=== PATIENT | female | born 1955 | race Caucasian/White ===

== ENCOUNTER → 2019-09-02 11:47 | Outpatient (CLI) | payer BC, SELFPAY ==
[2019-09-02 14:54] LABS: Coronavirus 19 IgG Antibody Negative (Negative); Coronavirus 19 IgM Antibody Negative (Negative)
== END ==
PROVIDERS: Visit Provider Internal Medicine Adolescent Medicine
DX: Z03.818 Encounter for observation for suspected exposure to other biological agents ruled out (principal)
CPT/HCPCS: 36415; 86328

== ENCOUNTER → 2019-09-12 11:06 | Outpatient (CLI) | payer BC, SELFPAY ==
--- NOTE | 2019-09-12 11:23 | MR_ITS ---
PROCEDURE: MR HEAD/BRAIN WO CON CLINICAL INDICATION: NEW ONSET HEADACHE Drooping in left eye. X 6 months but has gotten worse. HX breast cancer been in remission x22 years. No prior. COMPARISON: No exams were available for comparison TECHNIQUE: Routine multiplanar multi echo sequences are performed without gadolinium enhancement. FINDINGS: No midline shift, mass effect, intracranial hemorrhage, or hydrocephalus. No acute infarction is evident. There are multiple perivascular dilated spaces. Scattered periventricular and subcortical T2 white matter hyperintensities are present. The cerebellopontine angles, cerebellum, and brainstem are unremarkable. The pituitary, optic chiasm, corpus callosum and craniocervical junction have an unremarkable appearance. Small amount fluid is present in the right mastoid sinus. No paranasal sinus air-fluid level is evident. IMPRESSION: Scattered periventricular and subcortical T2 white matter hyperintensities nonspecific and may be due to ischemic gliotic change from microvascular disease. Differential diagnosis would include demyelinating process and migraine headache. Dictated by: Stepan Ware MD 09/13/2019 13:08 Electronically signed by Stepan Ware MD in [place] 09/13/2019 13:08
== END ==
PROVIDERS: PCP Internal Medicine Adolescent Medicine; Visit Provider Internal Medicine Adolescent Medicine
DX: R51 Headache (principal); H02.402 Unspecified ptosis of left eyelid
CPT/HCPCS: 70551

== ENCOUNTER → 2019-12-18 16:00 | Outpatient (CLI) | payer BC, SELFPAY ==
[2019-12-20 14:19] LABS: Covid-19 Nasal PCR Sendout Lex NOT DETECTED
== END ==
PROVIDERS: PCP Internal Medicine Adolescent Medicine; Visit Provider Internal Medicine Adolescent Medicine
DX: Z03.818 Encounter for observation for suspected exposure to other biological agents ruled out (principal)
CPT/HCPCS: 87581; 87633; 87798; U0004

== ENCOUNTER → 2020-05-11 09:53 | Outpatient (CLI) | payer BC, SELFPAY ==
--- NOTE | 2020-05-11 10:05 | CA_ITS ---
APPROVED REPORT EXAM: Comprehensive 2D, Doppler, and color-flow Echocardiogram Drywall Professional: Precious Ibarra, RCS, RVS Ht: 5 ft 6 in Wt: 129lbs BSA: 1.66 BP: 136/82 mmHg Indications: GALVAN, HTN, Family hx-cad, Hx-breast CA s/p mastectomy with Impants. Echo Enhancing Agent Comments: Technically Limited exam due to extreme petite body habitus and breast implant interference. 2D Dimensions LVOT 1.89 cm (M/F) 1.5-2.5 M-Mode Dimensions RVDd 1.92 cm (0.9-2.6) LA Diam 2.86 cm (1.9-4.0) LVDd 4.76 cm (3.5-5.7) Ao Diam 2.76 cm (2.0-3.7) LVDs 3.06 cm (3.5-5.7) IVSd 0.81 cm (0.6-1.1) PWd 0.76 cm (0.6-1.1) EF (Teich) 63.00% EPSs 1.13 cm FS 34.10% EDV (Teich) 99.30 mL TAPSE 2.01 (<1.7) ESV (Teich) 36.70 mL LV Diastology E Decel Time 207.00 (160-240 msec) E/A Ratio 1.26 MED E' 8.20 (< 7 cm/sec) MED A' 5.20 cm/s E'/MED E' Ratio 8.67 (>14) LAT E' 7.80 (<10 cm/sec) LAT A' 6.00 cm/s E/LAT E' Ratio 9.12 (>14) Aortic Valve LVOT Max 84.00 (70-110 cm/s) LVOT VTI 17.18 cm AoV Peak Eduardo. 111.00 (50-130 cm/s) AO Peak GR. 4.90 mmHg AO Mean GR. 2.80 (<5 mmHg) AO VTI 22.65 (18-25 cm) MARISOL (VTI) 2.13 (2.5-4.5 cm2) Mitral Valve MV E Max Eduardo. 71.00 (40-130 cm/s) MV A Velocity 56.00 (40-130 cm/s) E/A Ratio 1.26 MV Decel. Time 207.00 (160-240 ms) MV PHT 61.00 ms Pulmonary Valve PV Peak Velocity 67.00 (50-150 cm/s) Tricuspid Valve TR P. Velocity 109.00 cm/s RAP Estimate 10.00 mmHg RVSP 14.70 mmHg Left Ventricle Left atrium is normal size, left ventricle is normal size, there is no concentric left ventricular hypertrophy, visually estimated ejection fraction 55% with no regional wall motion abnormality, diastolic parameters are inconclusive. Right Ventricle Right atrium and right ventricle are normal size and contractility. Aortic Valve Aortic valve is minimally thickened and fibrosed, there is no aortic stenosis or aortic insufficiency. Mitral Valve Mitral valve grossly normal, there is trace mitral regurgitation. Tricuspid Valve Tricuspid valve grossly normal, there is trace tricuspid regurgitation. Pulmonic Valve Pulmonic valve is poorly visualized. Great Vessels Aortic root is normal size. Pericardium No significant pericardial effusion noted. Conclusion 1. Normal left ventricular size, preserved left ventricular systolic function, visually estimated ejection fraction 55% with no regional wall motion abnormality, diastolic parameters are inconclusive. 2. Trace mitral and tricuspid regurgitation. 3. No significant pericardial effusion noted. Electronically signed by : Dany Kelly, 05/11/2020 11:08:46
== END ==
PROVIDERS: PCP Internal Medicine Adolescent Medicine; Visit Provider Internal Medicine Adolescent Medicine
DX: R06.09 Other forms of dyspnea (principal)
CPT/HCPCS: 93306

== ENCOUNTER → 2021-01-24 07:24 | Outpatient (CLI) | payer MEDICARE, BC, SELFPAY ==
--- NOTE | 2021-01-24 08:19 | XR_ITS ---
PROCEDURE INFORMATION: Exam: XR Chest Exam date and time: 01/24/2021 8:19 AM Age: 65 years old Clinical indication: Shortness of breath; Additional info: Covid positive patient , SOB TECHNIQUE: Imaging protocol: XR of the chest. Views: 1 view. COMPARISON: No relevant prior studies available. FINDINGS: Tubes, catheters and devices: Surgical clips project over the left chest wall. Lungs: Biapical pleuroparenchymal scarring. Otherwise, no focal airspace disease. Pleural spaces: Unremarkable. No pleural effusion. No pneumothorax. Heart/Mediastinum: Unremarkable. No cardiomegaly. Bones/joints: Unremarkable. IMPRESSION: No acute cardiopulmonary abnormality.
[2021-01-24 08:24] LABS: Adenovirus,PCR Not Detected (NotDetected); Bordetella Pertussis Not Detected (NotDetected); Chlamydophila Pneumoniae, PCR Not Detected (NotDetected); Coronavirus 19, PCR Not Detected (NotDetected); Coronavirus 229E Not Detected (NotDetected); Coronavirus NL63 Not Detected (NotDetected); Coronavirus OC43 Not Detected (NotDetected); Coronovirus HKU1,PCR Not Detected (NotDetected); Human Metapneumovirus Not Detected (NotDetected); Influenza A, PCR Not Detected (NotDetected); Influenza AH1, 2009 Not Detected (NotDetected); Influenza AH1, PCR Not Detected (NotDetected); Influenza AH3,PCR Not Detected (NotDetected); Influenza B, PCR Not Detected (NotDetected); Mycoplasma Pneumoniae, PCR Not Detected (NotDetected); Parainfluenza 1, PCR Not Detected (NotDetected); Parainfluenza 2, PCR Not Detected (NotDetected); Parainfluenza 3, PCR Not Detected (NotDetected); Parainfluenza 4, PCR Not Detected (NotDetected); Respiratory Syncytial Virus Not Detected (NotDetected); Rhinovirus/Enterovirus Not Detected (NotDetected)
[2021-01-24 08:28] LABS: Basophils # 0.1 K/mm3 (0-0.2); Basophils % 0.7 % (0.1-2.0); Eosinophils # 0.1 K/mm3 (0.0-0.4); Eosinophils % 1.2 % (0.1-12.0); Hematocrit 39.9 % (37.0-47.0); Hemoglobin 13.4 g/dL (12.2-16.2); Lymphocytes # 1.3 K/mm3 (0.7-4.5); Lymphocytes % 12.5 % (10-50); Mean Corpuscular HGB Conc 33.5 g/dL (31.8-35.4); Mean Corpuscular Hemoglobin 32.3 pg (27.0-31.2); Mean Corpuscular Volume 96.3 fl (81-99); Mean Platelet Volume 9.3 fl (7.4-10.4); Monocytes # 0.6 K/mm3 (0.1-1.0); Monocytes % 6.1 % (1.7-9.3); Neutrophils % 79.4 % (37.0-80.0); Platelet Count 189 K/mm3 (142-424); Red Blood Count 4.15 M/mm3 (4.20-5.40); Red Cell Distribution Width 13.1 % (11.5-17.5); White Blood Count 10.1 K/mm3 (4.8-10.8)
[2021-01-24 08:36] LABS: Alanine Aminotransferase 27 U/L (12-78); Albumin Level 4.1 g/dl (3.5-5.0); Albumin/Globulin Ratio 1.6 (1.1-1.8); Alkaline Phosphatase 110 U/L (38-126); Anion Gap 9.8 mEq/L (5-15); Aspartate Amino Transferase 37 U/L (14-36); Bilirubin,Total 0.8 mg/dl (0.2-1.3); Blood Urea Nitrogen 13 mg/dl (7-17); Calcium 8.9 mg/dl (8.4-10.2); Carbon Dioxide 27 mmol/L (22.0-30.0); Chloride 102 mmol/L (98-107); Estimated Glomerular Filt Rate 124 ml/min (>60); GFR (African American) 150 ML/MIN (>60); Globulin 2.6 g/dL (1.3-3.2); Glucose 113 mg/dl (74-100); Potassium 3.8 mmoL/L (3.5-5.1); Sodium 135 mmol/L (136-145); Total Protein,Serum 6.7 g/dl (6.3-8.2)
== END ==
PROVIDERS: PCP Internal Medicine Adolescent Medicine; Visit Provider Internal Medicine Adolescent Medicine
DX: Z20.822 Contact with and (suspected) exposure to COVID-19 (principal); R07.89 Other chest pain; R50.9 Fever, unspecified; R06.09 Other forms of dyspnea
CPT/HCPCS: 36415; 71045; 80053; 85025; 87581; 87632; 87798; C9803; U0003; U0005

== ENCOUNTER → 2021-04-19 13:42 | Outpatient (CLI) | payer MEDICARE, BC, SELFPAY | PROVIDERS: PCP Internal Medicine Adolescent Medicine; Visit Provider Internal Medicine Adolescent Medicine | DX: R00.2 Palpitations (principal) | CPT/HCPCS: 93270 ==

== ENCOUNTER → 2021-04-30 13:29 | Outpatient (CLI) | payer MEDICARE, BC, SELFPAY ==
--- NOTE | 2021-04-30 | CA_ITS ---
APPROVED REPORT EXAM: Comprehensive 2D, Doppler, and color-flow Echocardiogram Tetryl Blender Operator: Marium Moss CRT Ht: 5 ft 6 in Wt: 130lbs BSA: 1.67 BP: 110/70 mmHg Indications: Diabetes, Atrial Fibrillation (new onset), Hyperlipidemia, Hypertension/HDD, previous breast CA, bilateral breast implants Echo Enhancing Agent Agent(s) / Amount(s) Used: Agitated Saline 6 cc Comments: B/S APPEARS NEGATIVE. 2D Dimensions LVOT 1.99 cm (M/F) 1.5-2.5 LA Volume 37.40 mL LA Volume Index 22.40 mL/m2 (M/F) 16-34 M-Mode Dimensions RVDd 1.83 cm (0.9-2.6) LA Diam 3.18 cm (1.9-4.0) LVDd 4.92 cm (3.5-5.7) Ao Diam 3.24 cm (2.0-3.7) LVDs 3.15 cm (3.5-5.7) IVSd 0.67 cm (0.6-1.1) PWd 0.65 cm (0.6-1.1) EF (Teich) 65.40% FS 36.00% EDV (Teich) 113.90 mL TAPSE 3.05 (<1.7) ESV (Teich) 39.40 mL LV Diastology E Decel Time 137.00 (160-240 msec) E/A Ratio 0.87 MED E' 5.90 (< 7 cm/sec) MED A' 7.80 cm/s E'/MED E' Ratio 11.24 (>14) LAT E' 8.40 (<10 cm/sec) LAT A' 6.60 cm/s E/LAT E' Ratio 7.89 (>14) Aortic Valve AO Peak GR. 6.30 mmHg Mitral Valve MV A Velocity 76.00 (40-130 cm/s) E/A Ratio 0.87 MV Decel. Time 137.00 (160-240 ms) Pulmonary Valve PV Peak Velocity 109.00 (50-150 cm/s) Tricuspid Valve TR P. Velocity 154.00 cm/s RAP Estimate 10.00 mmHg RVSP 19.50 mmHg Left Ventricle Left atrium is mildly enlarged, left ventricle is normal size, mild concentric left ventricular hypertrophy, visually estimated ejection fraction 55% with no regional wall motion abnormality, diastolic parameters are inconclusive. Right Ventricle Right atrium and right ventricle are normal size and contractility. Atria Intra-atrial septum is intact, agitated saline contrast study did not identify intracardiac shunt. Aortic Valve Aortic valve is minimally thickened and fibrosed, there is no aortic stenosis or aortic insufficiency. Mitral Valve Mitral valve grossly normal, there is trace mitral regurgitation. Tricuspid Valve Tricuspid grossly normal, there is trace tricuspid regurgitation, tricuspid regurgitation jet velocity is inadequate for calculation of the right ventricular systolic pressure. Pulmonic Valve Pulmonic valve is poorly visualized. Great Vessels Aortic root is normal size. Inferior vena cava is poorly visualized. Pericardium No significant pericardial effusion. Conclusion 1. Normal left ventricular size, mild concentric left ventricular hypertrophy, visually estimated ejection fraction 55% with no regional wall motion abnormality, diastolic parameters are inconclusive the study. 2. Trace mitral and tricuspid regurgitation. 3. Agitated saline contrast study fails to identify intracardiac shunt. 4. No significant pericardial effusion. 5. Inferior vena cava is poorly visualized. Electronically signed by : Dany Kelly MD 04/30/2021 15:28:11
== END ==
PROVIDERS: PCP Internal Medicine Adolescent Medicine; Visit Provider Internal Medicine Adolescent Medicine
DX: I48.0 Paroxysmal atrial fibrillation (principal)
CPT/HCPCS: 93306

== ENCOUNTER → 2021-06-02 11:36 | Outpatient (CLI) | payer MEDICARE, BC, SELFPAY ==
[2021-06-02 11:41] LABS: Coronavirus 19, PCR Not Detected (NotDetected); Influenza A, PCR Not Detected (NotDetected); Influenza B, PCR Not Detected (NotDetected)
[2021-06-02 12:26] LABS: Basophils # 0.1 K/mm3 (0-0.2); Basophils % 1.3 % (0.1-2.0); Eosinophils # 0.1 K/mm3 (0.0-0.4); Eosinophils % 1.7 % (0.1-12.0); Hematocrit 44.9 % (37.0-47.0); Hemoglobin 15.1 g/dL (12.2-16.2); Lymphocytes # 1.5 K/mm3 (0.7-4.5); Lymphocytes % 33.1 % (10-50); Mean Corpuscular HGB Conc 33.6 g/dL (31.8-35.4); Mean Corpuscular Hemoglobin 32.6 pg (27.0-31.2); Mean Corpuscular Volume 97.1 fl (81-99); Mean Platelet Volume 9.4 fl (7.4-10.4); Monocytes # 0.4 K/mm3 (0.1-1.0); Monocytes % 7.8 % (1.7-9.3); Neutrophils # 2.6 K/mm3 (1.8-7.8); Platelet Count 201 K/mm3 (142-424); Red Blood Count 4.63 M/mm3 (4.20-5.40); White Blood Count 4.6 K/mm3 (4.8-10.8)
[2021-06-02 13:13] LABS: Anion Gap 11.1 mEq/L (5-15); Blood Urea Nitrogen 21 mg/dl (7-17); Calcium 10.1 mg/dl (8.4-10.2); Carbon Dioxide 29 mmol/L (22.0-30.0); Chloride 101 mmol/L (98-107); Estimated Glomerular Filt Rate 100 ml/min (>60); GFR (African American) 121 ML/MIN (>60); Glucose 95 mg/dl (74-100); Potassium 4.1 mmoL/L (3.5-5.1); Sodium 137 mmol/L (136-145)
== END ==
PROVIDERS: PCP Internal Medicine Adolescent Medicine; Visit Provider Physician Assistant
DX: E78.5 Hyperlipidemia, unspecified (principal); I10 Essential (primary) hypertension; I47.1 Supraventricular tachycardia; I47.2 Ventricular tachycardia; I48.91 Unspecified atrial fibrillation; Z82.49 Family history of ischemic heart disease and other diseases of the circulatory system; Z01.812 Encounter for preprocedural laboratory examination; Z11.52 Encounter for screening for COVID-19
CPT/HCPCS: 36415; 80048; 85025; C9803; U0003; U0005

== ENCOUNTER 2021-06-03 10:30 | Day surgery (SDC) | payer MEDICARE, BC, SELFPAY ==
[2021-06-03] VITALS (13 sets, daily range): BP systolic 133–158; BP diastolic 73–89; PULSE 63–78; RESP 16–19; TEMP 36.5–36.9; O2SAT 95–100; BMI 21.7
--- NOTE | 2021-06-03 07:20 | IR_ITS ---
APPROVED REPORT Patient Location: Outpatient Supervisor Education: MAGGIE Saldivar RT (R) PROCEDURES Left heart catheterization Left ventriculogram Selective coronary angiogram INDICATION Ventricular tachycardia, Atrial fibrillation Informed consent was obtained prior to the procedure. COMPLICATIONS NONE Estimated Blood Loss: LESS THAN 10 ML TECHNIQUE One percent lidocaine used to anesthetize the right anterior aspect of the wrist. The right radial artery was accessed via the Seldinger technique. A 6 Citizen Of [place] sheath was placed in the right radial artery. 2.5 mg of verapamil, 800 mcg of nitroglycerin, 1mg Lidocaine and 5000 U Heparin were given through the arterial sheath. The papa catheter was also used to perform left heart catheterization, left ventriculogram and selective coronary angiogram. At the end of the procedure the sheath was removed good hemostasis was achieved using Traclet band, patient was transferred to the postop holding area in stable condition. ANGIOGRAPHIC RESULTS The left main artery Normal The left anterior descending artery Is a large-caliber vessel which gives rise to a high moderate sized first diagonal artery followed by a concentric 10 to 20% stenosis immediately after the first septal automated equipment engineer technician. This 20% stenosis is then followed by a mild to moderate vascular ectatic area. Distal to this is an additional 40% stenosis. Distal to the second diagonal artery is an additional 40% concentric stenosis The circumflex artery Is a nondominant yet still large caliber vessel with mild 10% luminal irregularities The right coronary artery Is a dominant vessel and has proximal and mid vessel diffuse 10% smooth luminal irregularities The CANTU ventriculogram reveals Normal slightly hyperdynamic at 65 to 70% The left ventricular end-diastolic pressure 15 mmHg IMPRESSION Coronary artery disease as described above accompanied by what appears to be endothelial dysfunction and probable mid vessel vascular ectasia Normal slightly hyperdynamic ventricle consistent with diastolic dysfunction which is also consistent with the highly tortuous vessels Borderline elevated LVEDP PLAN 1. Patient is endothelial dysfunction and I am suspicious an FFR of the LAD would become empirically positive. I am not convinced patient's angiographic stenoses are significant. I would prefer performing an exercise Myoview to determine if the anterior wall has ischemia. Patient's body habitus should allow for highly diagnostic and favorable pictures to adequately assess for anterior ischemia. 2. Recommend aggressive management of hyperlipidemia with a goal LDL less than 55 to be achieved with high intensity statin 3. Aspirin 81 mg daily 4. Continue with anticoagulation for paroxysmal atrial fibrillation and chads vas score of 3 5. Maximize beta-blockers first possibly combined with diltiazem 6. Low-dose nitrates may also benefit endothelial dysfunction 7. If the anterior wall is ischemic on Myoview images I would be inclined to bring patient back to the [facility] and revascularize the LAD possibly with IVUS guidance due to the diffuse nature of the LAD disease Electronically signed by : eLs Nava MD 06/03/2021 12:58:28
== END 2021-06-03 16:16 | disposition home or self-care (01) ==
LOC: CATHLAB 10:31
PROVIDERS: PCP Internal Medicine Adolescent Medicine; Visit Provider Internal Medicine
DX: E78.5 Hyperlipidemia, unspecified (principal); I10 Essential (primary) hypertension; I45.5 Other specified heart block; I47.1 Supraventricular tachycardia; I47.2 Ventricular tachycardia; I48.0 Paroxysmal atrial fibrillation; R94.31 Abnormal electrocardiogram [ECG] [EKG]; Z82.49 Family history of ischemic heart disease and other diseases of the circulatory system; Z79.899 Other long term (current) drug therapy; I25.10 Atherosclerotic heart disease of native coronary artery without angina pectoris; Z79.01 Long term (current) use of anticoagulants
CPT/HCPCS: 93458; 99152; C1725; C1760; C1769; J1644; Q9967

== ENCOUNTER → 2021-06-09 07:15 | Outpatient (CLI) | payer MEDICARE, BC, SELFPAY ==
--- NOTE | 2021-06-09 | CA_ITS ---
APPROVED REPORT Exam: Exercise Treadmill Technologist: Janell Shah Ht: 5 ft 6 in Wt: 135 lbs BSA: 1.69 m2 HR: 49 bpm BP: 134/75 mmHg Indications: CAD Medical History Medications: Aspirin,,,,, Atorvastatin,,,,, Mechelle,,,,, DilTiazem,,,,, Losartan HCTZ,,,,, Ipratropium [place],,,,, Multivitamin,,,,, Potassium,,,,, Stress Test Details Test: Manual Treadmill HR Resting HR: 55 bpm Max Heart Rate (APMHR): 155.420238 bpm Max HR Achieved: 118 bpm Target HR (85% APMHR): 131.467755 bpm % of APMHR: 76.13 Recovery HR: 62 bpm BP Resting BP: 134.0/75.0 mmHg Max BP: 148.0/80.0 mmHg Recovery BP: 137.0/72.0 mmHg ECG Resting ECG: Marked sinus bradycardia, rightward axis Clinical Exercise duration: 10:30 min Highest Stage Achieved: Exercise capacity: 12.8 METs Stress ECG Conclusion Patient exercised 10:30 into stage 4 of Rodo Protocol. Speed was decreased over the final 45 seconds. Test stopped due to shortness of air. Symptoms: No chest pain. Arrhythmias/Ectopy: Rare PAC and PVC. ST-T Changes: 0.5 - [address] depression inferiorly and laterally. Conclusion: Equivocal EKG changes for ischemia, to the heart rate achieved (76% of PM). Myoview images reported separately. Test Summary REST . . . . . . . Sitting REST . . . . . . . Standing REST 04:34 0.0 0.0 55 . 134/ 75 . . Stage 1 01:00 10.0 1.7 71 . . . . Stage 1 02:00 10.0 1.7 76 . . . . Stage 1 03:00 10.0 1.7 78 . 132/ 76 . . Stage 2 01:00 12.0 2.5 82 . . . . Stage 2 02:00 12.0 2.5 80 . . . . Stage 2 03:00 12.0 2.5 86 . 132/ 75 . . Stage 3 01:00 14.0 3.4 93 . . . . Stage 3 02:00 14.0 3.4 97 . . . . Stage 3 . . . . . . . Myoview Injected Stage 3 03:00 14.0 3.4 99 . 140/ 74 . . Stage 4 . . . . . . . Protocol changed to Manual Treadmill Stage 4 01:00 16.0 3.8 118 . . . . Stage 4 01:30 16.0 3.8 113 . . . Stop exercise at 10:30 RECOVERY 01:00 0.0 0.0 91 . . . . RECOVERY 02:00 0.0 0.0 87 . 148/ 80 . . RECOVERY 03:00 0.0 0.0 70 . 148/ 80 . . RECOVERY 04:00 0.0 0.0 71 . 148/ 80 . . RECOVERY 05:00 0.0 0.0 63 . 137/ 72 . . RECOVERY 05:20 0.0 0.0 63 . 137/ 72 . . Electronically signed by : Dany Kelly MD 06/09/2021 20:26:51
--- NOTE | 2021-06-09 07:15 | NM_ITS ---
APPROVED REPORT Exam: Nuclear Stress Test Indication: CAD, HTN, HYPERLIPIDEMIA, FM HX, ABN EKG Patient Location: Outpatient Stress Tech: Janell Shah GA Tech:MAGGIE Turner RT (R)(N)(M) Ht: 5 ft 6 in Wt: 130 lbs Bra Size: 30D HR: 49 bpm BP: 134/75 mmHg BSA: 1.67 m2 BMI: 20.9 History: CAD, HTN, HYPERLIPIDEMIA, FM HX, ABN EKG Procedure: Patient exercised on Rodo protocol 10:30 minutes and sec, resting heart rate 49 bpm, resting blood pressure 134/75 mmHg, with exercise maximum heart rate achived was 118 bpm which is 76 % of the maximum predicted heart rate and blood pressure was 148/80 mmHg. Test was stopped due to FATIGUE. Patient denied any complaint of chest pain. Patient has good exercise capacity, achieved 12.8 METs of workload on treadmill, the blood pressure response to exercise was Adequate. Electrocardiogram Resting electrocardiogram shows sinus rhythm nonspecific ST-T changes, with exercise there is less than 1.[address] segment depression noted from the baseline EKG. The EKG portion of the exercise Myoview is nondiagnostic due to baseline abnormal EKG and patient not achieving the target heart rate. Cardiac Stress and Resting SPECT Images: Cardiac Stress and Resting SPECT images were obtained using technetium 99m Myoview 31.1 mCi stress and 10.43 mCi at rest. Gated SPECT for analysis of segmental wall motion and calculation of the ejection fraction also done. Cardiac stress and resting SPECT images show mild fixed defect in the anterior wall with normal contractility gated SPECT is likely secondary to soft tissue attenuation, no reversible ischemia seen, computer derived ejection fraction is 48% with no regional wall motion abnormality, right ventricle is normal size and contractility. Conclusion: 1. The EKG portion of the exercise Myoview is nondiagnostic, patient has good exercise capacity achieved 12.8 METs of workload on treadmill, the blood pressure response to exercise was adequate, patient denied any complaint of chest pain. 2. No scintigraphic evidence of reversible ischemia seen, computer derived ejection fraction is 48% with no regional wall motion abnormality, right ventricle is normal size and contractility. Electronically signed by : Dany Kelly MD 06/09/2021 20:35:25
== END ==
PROVIDERS: PCP Internal Medicine Adolescent Medicine; Visit Provider Internal Medicine
DX: R94.31 Abnormal electrocardiogram [ECG] [EKG] (principal)
CPT/HCPCS: 78452; 93017; A9502

== ENCOUNTER 2022-01-09 21:09 | Observation (INO) | payer MEDICARE, BC, SELFPAY ==
[2022-01-09 21:12] VITALS: BP 137/85; PULSE 70; RESP 16; TEMP 36.8; O2SAT 97; BMI 21.7
--- NOTE | 2022-01-09 21:14 | XR_ITS ---
PROCEDURE INFORMATION: Exam: XR Chest Exam date and time: 01/09/2022 9:36 PM Age: 66 years old Clinical indication: Shortness of breath; Additional info: SOB TECHNIQUE: Imaging protocol: Radiologic exam of the chest. Views: 1 view. COMPARISON: CR XR CHEST PORTABLE 01/24/2021 8:26 AM FINDINGS: Lungs: Chronic biapical parenchymal scarring. No acute airspace consolidation. Pleural spaces: Chronic biapical pleural scarring. Heart/Mediastinum: Unremarkable. No cardiomegaly. Bones/joints: Unremarkable. IMPRESSION: No acute findings.
--- NOTE | 2022-01-09 21:30 | ECG_ITS ---
APPROVED REPORT Exam: Resting ECG HR:67 bpm ECG Measurements Heart Rate 67 AXES AL 192 P 78 QRSd 96 QRS 94 QT 424 T 89 QTc 439 Conclusion SINUS RHYTHM BORDERLINE RIGHT AXIS DEVIATION [QRS AXIS > 90] BORDERLINE ECG UNCONFIRMED REPORT Electronically signed by : Carmelo Andres MD 01/10/2022 21:40:37
--- NOTE | 2022-01-09 21:45 | PC.NURSE ---
Pt reports to be a L limb alert. [place] band placed on L wrist.
[2022-01-09 22:00] VITALS: BP 121/77; PULSE 63; RESP 16; O2SAT 98
[2022-01-09 22:03] LABS: Basophils # 0.1 K/mm3 (0-0.2); Basophils % 0.9 % (0.1-2.0); Eosinophils # 0.3 K/mm3 (0.0-0.4); Eosinophils % 3.3 % (0.1-12.0); Hematocrit 39.5 % (37.0-47.0); Hemoglobin 12.9 g/dL (12.2-16.2); Lymphocytes # 2.1 K/mm3 (0.7-4.5); Lymphocytes % 27.5 % (10-50); Mean Corpuscular HGB Conc 32.7 g/dL (31.8-35.4); Mean Corpuscular Hemoglobin 32.4 pg (27.0-31.2); Mean Platelet Volume 8.8 fl (7.4-10.4); Monocytes # 0.7 K/mm3 (0.1-1.0); Monocytes % 8.7 % (1.7-9.3); Neutrophils # 4.6 K/mm3 (1.8-7.8); Neutrophils % 59.6 % (37.0-80.0); Platelet Count 197 K/mm3 (142-424); Red Blood Count 3.99 M/mm3 (4.20-5.40); Red Cell Distribution Width 12.9 % (11.5-17.5); White Blood Count 7.7 K/mm3 (4.8-10.8)
[2022-01-09 22:13] LABS: Alanine Aminotransferase 25 U/L (12-78); Albumin Level 4.1 g/dl (3.5-5.0); Albumin/Globulin Ratio 1.7 (1.1-1.8); Alkaline Phosphatase 165 U/L (38-126); Anion Gap 13.7 mEq/L (5-15); Aspartate Amino Transferase 39 U/L (14-36); Bilirubin,Total 0.4 mg/dl (0.2-1.3); Blood Urea Nitrogen 19 mg/dl (7-17); Calcium 8.9 mg/dl (8.4-10.2); Carbon Dioxide 28 mmol/L (22.0-30.0); Chloride 100 mmol/L (98-107); Creatinine Clearance Estimated 53 mL/min (50-200); Estimated Glomerular Filt Rate 123 ml/min (>60); GFR (African American) 149 ML/MIN (>60); Globulin 2.4 g/dL (1.3-3.2); Glucose 157 mg/dl (74-100); Potassium 3.7 mmoL/L (3.5-5.1); Sodium 138 mmol/L (136-145); Total Protein,Serum 6.5 g/dl (6.3-8.2)
--- NOTE | 2022-01-09 22:14 | PC.NURSE ---
Dr. Arango at [facility]
[2022-01-09 22:25] LABS: NT Pro Brain Natriuretic Pep. 566 pg/mL (0-125)
[2022-01-09 22:27] LABS: Troponin I < 0.01 ng/ml (0.00-0.034)
[2022-01-09 22:30] VITALS: BP 128/75; PULSE 64; RESP 17; O2SAT 97
--- NOTE | 2022-01-09 22:32 | CT_ITS ---
PROCEDURE INFORMATION: Exam: CT Head Without Contrast Exam date and time: 01/09/2022 11:37 PM Age: 66 years old Clinical indication: Syncope and collapse TECHNIQUE: Imaging protocol: Computed tomography of the head without contrast. Radiation optimization: All CT scans at this facility use at least one of these dose optimization techniques: automated exposure control; mA and/or kV adjustment per patient size (includes targeted exams where dose is matched to clinical indication); or iterative reconstruction. COMPARISON: MR HEAD/BRAIN WO CON 09/12/2019 11:36 AM FINDINGS: Brain: There is age-appropriate cerebral atrophy. Severe changes of chronic small vessel ischemia within the cerebral white matter regions bilaterally. No acute infarct or hemorrhage. Cerebral ventricles: No ventriculomegaly. Paranasal sinuses: Visualized sinuses are unremarkable. No fluid levels. Mastoid air cells: Visualized mastoid air cells are well aerated. Bones/joints: Unremarkable. No acute fracture. Soft tissues: Unremarkable. IMPRESSION: No acute intracranial abnormality.
[2022-01-09 23:01] VITALS: BP 106/55; PULSE 65; RESP 17; O2SAT 98
[2022-01-09 23:30] VITALS: BP 123/85; PULSE 66; RESP 20; O2SAT 96
--- NOTE | 2022-01-09 23:33 | PC.NURSE ---
Waiting for a return call from cardiac service with [facility]
--- NOTE | 2022-01-09 23:43 | PC.NURSE ---
Dr. [facility] garcia
--- NOTE | 2022-01-09 23:47 | PC.NURSE ---
Pt admitted [facility] to [facility]. Dr. Arango updating pt/family at this time.
--- NOTE | 2022-01-09 23:58 | HMH.EDGENADL ---
Discharge Plan Disposition Patient Disposition: Admitted as Observation Condition: Good Chief Complaint: Syncope Clinical Impressions Clinical Impression: Near syncope Discharge ED Provider: Jesus Arango General Adult HPI General Chief complaint: Syncope Stated complaint: 01/05 Heart Procure Light Headed Time Seen by Provider: 01/09/22 21:14 Mode of Arrival: Wheelchair Source of Information: Patient Limitations: No Limitations Description of Symptoms (Recalled from ER Triage Doc. by RN): Pt c/o pre-syncopal episode while shopping. States she felt like I might pass out so I sat down real quick and it got a little better. Then I was assisted to stand and sit on a bench . Pt's spouce then brought pt to ED. She denies any dizziness or chest pain. She reports she had a watchman device placed on Mon (01/05) and follow-up with PCP ([facility]) on Mon (01/07). Per pt, she reports that Dr Andres wanted her to cut her blood pressure med (Losartan/HCTZ) in half d/t her BP being low. Pt just started back on her blood thinner Xarelto. History of Present Illness HPI narrative: 66yo F presents to the emergency department secondary to near syncope. Reports episode began while she was shopping at [employer]. Went home but family encouraged her to be evaluated urgently. Patient recently underwent watchman procedure on January 05 at [facility]. Saw PCP on Monday and her blood pressure medication reduced secondary to mild low blood pressure. Denies any chest pain, rapid heart rate/slow heart rate/skipping beats. No shortness of breath Related Data Home Medications Medication Instructions Recorded Confirmed aspirin 81 mg tablet,delayed 81 mg PO DAILY 06/02/21 06/14/21 release atorvastatin 40 mg tablet 40 mg PO DAILY 06/02/21 06/14/21 calcium 600 mg-D3 800 unit-mag11 1 tab PO DAILY 06/02/21 06/14/21 50 fi-oixs-odhfng-remberto-s.borat tablet diltiazem HCl 120 mg 120 mg PO DAILY 06/02/21 06/14/21 capsule,extended release 24 hr fexofenadine 180 mg tablet 180 mg PO DAILY 06/02/21 06/14/21 (Mechelle Allergy) ipratropium bromide 21 mcg (0.03 2 spray intranasal ONCE 03/30/22 04/11/22 %) nasal spray losartan 100 0.5 tab PO DAILY 06/02/21 06/14/21 mg-hydrochlorothiazide 25 mg tablet multivitamin 1 tab PO DAILY 06/02/21 06/14/21 potassium chloride 20 mEq 20 meq PO DAILY 06/02/21 06/14/21 tablet,extended release(part/cryst) s-adenosnyl 200 mg-collagen 13.33 1 cap PO DAILY 06/02/21 06/14/21 fd-avjpql-Vtgiwe-turm-pep capsule Previous Rx's Medication Instructions Recorded montelukast 10 mg tablet 10 mg PO DAILY #30 tabs 06/02/21 rivaroxaban 20 mg tablet (Xarelto) 20 mg PO DAILY #30 tabs 06/02/21 metoprolol succinate 25 mg See Rx Instructions .Route 12/02/21 tablet,extended release 24 hr .COMPLEX #90 tabs Allergies Allergy/AdvReac Type Severity Reaction Status Date / Time apixaban [From Eliquis] Allergy rash on Verified 06/14/21 11:01 neck & face rivaroxaban [From Xarelto] Allergy rash to Verified 06/14/21 11:01 face & neck PFSH PFSH Medical History Abnormal electrocardiography Atrial fibrillation Atrial tachycardia Family history of heart disease HLD (hyperlipidemia) HTN (hypertension) V tach Social History Smoking Status: Former smoker alcohol intake: never current occupational status: employed Travel in the last 8 weeks: Inside the [place] household members: spouse housing: house current occupational exposures/hazards: No caffeine: No ROS Obtained: Yes Systems reviewed as appropriate & no additional complaints except as documented 10 point ROS negative except as above Physical Exam General General appearance: alert and in no apparent distress Head Head exam: atraumatic and normocephalic Eye Eye exam: Present normal appearance and PERRL; Absent scleral icterus, conj
[2022-01-10] VITALS (8 sets, daily range): BP systolic 113–125; BP diastolic 65–80; PULSE 56–70; RESP 16–19; TEMP 36.5–36.7; O2SAT 96–99; BMI 22.5; BMI 22.1
[2022-01-10 00:37] LABS: Coronavirus 19, PCR Not Detected (NotDetected); Influenza A, PCR Not Detected (NotDetected); Influenza B, PCR Not Detected (NotDetected)
[2022-01-10 01:11] LABS: Troponin I < 0.01 ng/ml (0.00-0.034)
[2022-01-10 03:47] LABS: Basophils # 0.1 K/mm3 (0-0.2); Eosinophils # 0.2 K/mm3 (0.0-0.4); Eosinophils % 3.4 % (0.1-12.0); Hematocrit 37.6 % (37.0-47.0); Hemoglobin 12.5 g/dL (12.2-16.2); Lymphocytes # 1.7 K/mm3 (0.7-4.5); Lymphocytes % 24.9 % (10-50); Mean Corpuscular HGB Conc 33.2 g/dL (31.8-35.4); Mean Corpuscular Hemoglobin 32.4 pg (27.0-31.2); Mean Corpuscular Volume 97.7 fl (81-99); Mean Platelet Volume 9.7 fl (7.4-10.4); Monocytes # 0.6 K/mm3 (0.1-1.0); Monocytes % 8.8 % (1.7-9.3); Neutrophils # 4.3 K/mm3 (1.8-7.8); Platelet Count 171 K/mm3 (142-424); Red Blood Count 3.85 M/mm3 (4.20-5.40); Red Cell Distribution Width 12.8 % (11.5-17.5); White Blood Count 6.9 K/mm3 (4.8-10.8)
[2022-01-10 03:48] LABS: Chloride 104 mmol/L (98-107); Sodium 138 mmol/L (136-145)
[2022-01-10 03:51] LABS: Blood Urea Nitrogen 16 mg/dl (7-17); Carbon Dioxide 26 mmol/L (22.0-30.0); Creatinine Clearance Estimated 55 mL/min (50-200); Estimated Glomerular Filt Rate 123 ml/min (>60); GFR (African American) 149 ML/MIN (>60); Phosphorous 3.8 mg/dl (2.5-4.5)
[2022-01-10 03:52] LABS: Calcium 8.8 mg/dl (8.4-10.2)
[2022-01-10 04:03] LABS: Glucose 94 mg/dl (74-100); Troponin I < 0.01 ng/ml (0.00-0.034)
--- NOTE | 2022-01-10 05:44 | PC.NURSE ---
NO ACUTE CHANGES SINCE ARRIVING TO THE FLOOR. LUNG SOUNDS ARE CLEAR. HAS RESTED WELL. NO C/O CHEST PAIN, SOB, OR DIZZINESS. REMAINS NSR TO SINUS ARRHYTHMIA ON TELE. VSS. PT HAS EXPRESSED CONCERN ABOUT HER BLOOD PRESSURE AND BLOOD PRESSURE MEDICATION. CONCERNS WERE DISCUSSED WITH PT. PT HAS AMBULATED TO THE BATHROOM WITH STANDBY ASSIST.
--- NOTE | 2022-01-10 07:11 | HMH.PHAINT1 ---
Pharmacy Intervention Comments: MEDICATION RECONCILIATION COMPLETED ON PATIENT USING EXTERNAL FILL HISTORY FROM PHARMACY AND LSIT FROM CARDIOLOGY OFFICE. -RENÉ JAMAD
--- NOTE | 2022-01-10 08:40 | EXP.HPDC ---
General Admission date:: 01/10/22 Discharge date: 01/10/22 *Admission Date: 01/09/22 *Chief complaint: Near syncope *History of present illness: 66-year-old female with recent history of watchman device implantation for paroxysmal atrial fibrillation who has been feeling well since that time but has progressively had lower blood pressures in my office and I cut her HCTZ/losartan in half last week at her post hospital transitional care visit. She had been doing well but was shopping at [employer] yesterday and had a near syncopal episode which forced her to sit down on the floor and had classic vasovagal symptoms of sweating, nausea and leg weakness. She did not actually pass out, her [facility] and brought her to the emergency department. ER work-up was negative but given her recent watchman device implantation she was watched overnight for further evaluation. [facility] Medical History (Updated 01/10/22 @ 01:43 by Charity Walker RN) Abnormal electrocardiography Allergies Atrial fibrillation Atrial tachycardia Breast cancer Family history of heart disease HLD (hyperlipidemia) HTN (hypertension) Pneumonia V tach Surgical History (Updated 01/10/22 @ 01:43 by Charity Walker RN) H/O breast augmentation H/O lumpectomy History of section Family History (Updated 01/10/22 @ 01:43 by Charity Walker RN) Family history of hypertension Family history of myocardial infarction Family history of hyperlipidemia Social History (Updated 01/10/22 @ 01:43 by Charity Walker RN) Smoking Status: Former smoker alcohol intake: never current occupational status: retired Travel in the last 8 weeks: Inside the [place] household members: spouse housing: house current occupational exposures/hazards: No caffeine: No Review of Systems Review of Systems Review of systems:: pertinent systems reviewed and negative unless documented below Exam Data for Last 24 hours Vital signs and Labs for Last 24 Hours: Temp Pulse Resp BP Pulse Ox 97.7 F 62 18 119/74 97 01/10/22 04:00 01/10/22 04:00 01/10/22 04:00 01/10/22 04:00 01/10/22 04:00 Laboratory Results - last 24 hr 01/09/22 21:51: WBC 7.7, RBC 3.99 L, Hgb 12.9, Hct 39.5, MCV 99.0, MCH 32.4 H, MCHC 32.7, RDW 12.9, Plt Count 197, MPV 8.8, Neut % (Auto) 59.6, Lymph % (Auto) 27.5, [place] % (Auto) 8.7, Eos % (Auto) 3.3, Baso % (Auto) 0.9, Neut # (Auto) 4.6, Lymph # (Auto) 2.1, [place] # (Auto) 0.7, Eos # (Auto) 0.3, Baso # (Auto) 0.1 01/09/22 21:51: Sodium 138, Potassium 3.7, Chloride 100, Carbon Dioxide 28, Anion Gap 13.7, BUN 19 H, Creatinine 0.50 L, Estimated Creat Clear 53, Estimated GFR 123, Est GFR ( Amer) 149, Glucose 157 H, Calcium 8.9, Total Bilirubin 0.4, AST 39 H, ALT 25, Alkaline Phosphatase 165 H, Troponin I < 0.01, NT-Pro-B Natriuret Pep 566 H, Total Protein 6.5, Albumin 4.1, Globulin 2.4, Albumin/Globulin Ratio 1.7 01/10/22 00:01: SARS-CoV-2 (PCR) Not detected, Influenza A Untype (PCR) Not detected, Influenza Type B (PCR) Not detected 01/10/22 00:32: Troponin I < 0.01 01/10/22 03:30: WBC 6.9, RBC 3.85 L, Hgb 12.5, Hct 37.6, MCV 97.7, MCH 32.4 H, MCHC 33.2, RDW 12.8, Plt Count 171, MPV 9.7, Neut % (Auto) 62.0, Lymph % (Auto) 24.9, [place] % (Auto) 8.8, Eos % (Auto) 3.4, Baso % (Auto) 1.0, Neut # (Auto) 4.3, Lymph # (Auto) 1.7, [place] # (Auto) 0.6, Eos # (Auto) 0.2, Baso # (Auto) 0.1 01/10/22 03:30: Sodium 138, Potassium 5.0 D, Chloride 104, Carbon Dioxide 26, Anion Gap 13.0, BUN 16, Creatinine 0.50 L, Estimated Creat Clear 55, Estimated GFR 123, Est GFR ( Amer) 149, Glucose 94 D, Calcium 8.8, Phosphorus 3.8, Magnesium 2.0, Troponin I < 0.01 I & O for Last 24 hours: Intake & Output 01/07/22 01/08/22 01/09/22 01/10/22 12:59 12:59 11:59 11:59 Output Total 0 / 0 Balance 0 / 0 Weight 138 lb 3.2 oz Constitutional Constitutional: no acute distress *Routine HEENT Exam Head: Present normocephalic Eye:
--- NOTE | 2022-01-12 12:54 | CARE MANAGER ---
Contacted patient related to hospital discharge. She states she is doing much better since the medication changes. She denies any questions or concerns.
== END 2022-01-10 10:26 | disposition home or self-care (01) ==
LOC: ER 21:27 → 2ND 01-10 00:07
PROVIDERS: Admitting Provider Family Medicine; Emergency Provider Family Medicine; PCP Internal Medicine Adolescent Medicine; Visit Provider Internal Medicine Adolescent Medicine
DX: R55 Syncope and collapse (principal); R94.31 Abnormal electrocardiogram [ECG] [EKG]; I48.0 Paroxysmal atrial fibrillation; I10 Essential (primary) hypertension; E78.5 Hyperlipidemia, unspecified; Z79.899 Other long term (current) drug therapy; Z79.01 Long term (current) use of anticoagulants; R06.9 Unspecified abnormalities of breathing; I47.20 Ventricular tachycardia, unspecified; Z95.811 Presence of heart assist device
CPT/HCPCS: G0378; 36415; 70450; 71045; 80048; 80053; 83735; 83880; 84100; 84484; 85025; 93005; 99285; C9803; U0003; U0005

== ENCOUNTER 2022-03-06 17:05 | Emergency (ER) | payer MEDICARE, BC, SELFPAY ==
--- NOTE | 2022-03-06 17:38 | EXP.UTC ---
Discharge Plan Disposition Patient Disposition: Home, Self-Care Condition: Good Prescriptions Prescriptions: New amoxicillin [amoxicillin] 500 mg tablet 500 mg PO TID 10 Days Qty: 30 0RF benzonatate [benzonatate] 100 mg capsule 100 mg PO TIDP PRN (Reason: Cough) Qty: 30 0RF No Action atorvastatin 40 mg tablet 40 mg PO DAILY potassium chloride 20 mEq tablet,ER particles/crystals 20 meq PO DAILY diltiazem HCl 120 mg capsule,extended release 24hr 120 mg PO DAILY ipratropium bromide 21 mcg (0.03 %) spray,non-aerosol 2 spray INTRANASAL DAILYP PRN (Reason: ALLERGIES) aspirin 81 mg tablet,delayed release (DR/EC) 81 mg PO DAILY fexofenadine [[facility] Allergy] 180 mg tablet 180 mg PO DAILY [id number]-rmym-gjw-xonj-xpn 600 mg calcium- 800 unit-50 mg tablet 1 tab PO DAILY multivitamin Tablet 1 tab PO DAILY q-cbio-bpad-bflu-Hja-wkax-pep 200-13.33 mg capsule,delayed release(DR/EC) 1 cap PO DAILY metoprolol succinate 25 mg tablet extended release 24 hr See Rx Instructions .ROUTE .COMPLEX Qty: 90 1RF Dose Instruction: Take 1 tablet by mouth once daily Rx Instructions: Take 1 tablet by mouth once daily Xarelto 20 mg tablet 20 mg PO QPMWITHMEAL Referrals Follow up/Referrals: Carmelo Andres MD [Primary Care Provider] - See instructions Activity Restrictions/Add. Instructions Additional Instructions/Restrictions: Drink plenty of fluids. Take tylenol for pain or fever. 1000 mg ever 6 hours for the next couple of days would probably help best. Just don't take more than 4000 mg in a 24 hour period. Take the medications as directed. Follow up with your regular doctor. GO TO THE ER FOR ANY WORSENING SYMPTOMS Clinical Impressions Clinical Impression: Strep throat Instructions Patient Instructions: Strep Throat, DI for Strep Throat Discharge ED Provider: Marcos Lee [facility] HPI General Stated complaint: fever,Body aches,MEEHAN Time Seen by Provider: 03/06/22 17:36 History of Present Illness Provider Complaint: She states that for the past 2 days she has had a worsening sore throat. She has had chills but no documented fever. She also has had body aches and nausea. Related Data Home Medications Medication Instructions Recorded Confirmed aspirin 81 mg tablet,delayed 81 mg PO DAILY heart health 06/02/21 01/10/22 release atorvastatin 40 mg tablet 40 mg PO DAILY Cholesterol 06/02/21 01/10/22 calcium 600 mg-D3 800 unit-mag11 1 tab PO DAILY Supplement 06/02/21 01/10/22 50 re-hary-icymcu-remberto-s.borat tablet diltiazem HCl 120 mg 120 mg PO DAILY afib 06/02/21 01/10/22 capsule,extended release 24 hr fexofenadine 180 mg tablet 180 mg PO DAILY Allergy symptoms 06/02/21 01/10/22 ([facility]le Allergy) ipratropium bromide 21 mcg (0.03 2 spray intranasal DAILYP PRN 06/02/21 01/10/22 %) nasal spray ALLERGIES multivitamin 1 tab PO DAILY Supplement 06/02/21 01/10/22 potassium chloride 20 mEq 20 meq PO DAILY Supplement 06/02/21 01/10/22 tablet,extended release(part/cryst) s-adenosnyl 200 mg-collagen 13.33 1 cap PO DAILY Supplement 06/02/21 01/10/22 he-qpxkud-Vaecgm-turm-pep capsule DR rivaroxaban 20 mg tablet (Xarelto) 20 mg PO QPMWITHMEAL AFIB 01/10/22 01/10/22 Previous Rx's Medication Instructions Recorded metoprolol succinate 25 mg See Rx Instructions .Route 02/21/22 tablet,extended release 24 hr .COMPLEX #90 tabs amoxicillin 500 mg tablet 500 mg PO TID 10 days #30 tabs 03/06/22 benzonatate 100 mg capsule 100 mg PO TIDP PRN Cough #30 caps 03/06/22 Allergies Allergy/AdvReac Type Severity Reaction Status Date / Time No Known Allergies Allergy Verified 01/10/22 00:40 [facility] Disclaimer: The information contained in this section may have been updated after the patient was seen, as this information can be updated by other users. Medical History (Reviewed 03/06/22 @ 20:14 by Marcos Lee, APR
[2022-03-06 17:40] VITALS: BP 154/93; PULSE 89; RESP 20; TEMP 38.4; O2SAT 95; BMI 21.7
[2022-03-06 17:53] LABS: UTC Influenza A Antigen Negative (Negative); UTC Influenza B Antigen Negative (Negative); UTC Strep Screen (Rapid) Positive (Negative)
[2022-03-06 18:13] VITALS: BP 154/93; PULSE 89; RESP 20; TEMP 38.4; O2SAT 95
== END 2022-03-06 18:29 | disposition home or self-care (01) ==
PROVIDERS: Emergency Provider Nurse Practitioner Family; PCP Internal Medicine Adolescent Medicine
DX: J02.0 Streptococcal pharyngitis (principal)
CPT/HCPCS: 87804; 87880; 96372; 99212; 99213; G0463; J0696

== ENCOUNTER → 2023-02-20 16:28 | Outpatient (CLI) | payer MEDICARE, BC, SELFPAY ==
--- NOTE | 2023-02-20 | XR_ITS ---
PROCEDURE INFORMATION: Exam: XR Chest Exam date and time: 02/20/2023 4:35 PM Age: 67 years old Clinical indication: Cough; Prior surgery; Surgery date: 1-6 months; Surgery type: Heart ablation procedure; Additional info: Persistent cough. TECHNIQUE: Imaging protocol: Radiologic exam of the chest. Views: 2 views. COMPARISON: CR XR CHEST PORTABLE 01/09/2022 9:36 PM FINDINGS: Lungs: Unchanged chronic biapical scarring. No acute opacities. Pleural spaces: Normal No pleural effusion. No pneumothorax. Heart/Mediastinum: No cardiomegaly. Atrial appendage occlusion device in place. Bones/joints: Osteopenia. Soft tissues: Surgical clips in the left axilla. IMPRESSION: No acute findings.
== END ==
PROVIDERS: PCP Internal Medicine Adolescent Medicine; Visit Provider Nurse Practitioner Family
DX: R05.3 Chronic cough (principal)
CPT/HCPCS: 71046

== ENCOUNTER → 2023-02-24 11:59 | Outpatient (CLI) | payer MEDICARE, BC, SELFPAY ==
--- NOTE | 2023-02-24 12:06 | XR_ITS ---
FINAL REPORT CLINICAL HISTORY: left sided rib pain FINDINGS: Left ribs Three views were obtained. There is no acute fracture or dislocation. No soft tissue abnormality is identified. IMPRESSION: No acute process. Reviewed, Interpreted and Dictated by Tim Peters MD Transcribed by Rebecca Sharif Authenticated and [facility]
--- NOTE | 2023-02-24 12:09 | XR_ITS ---
FINAL REPORT CLINICAL HISTORY: LEFT SIDE CHEST WALL PAIN COMPARISON: 02/20/2023 FINDINGS: TWO-VIEW CHEST The heart size is normal. The mediastinum is normal. There is biapical pleural and parenchymal scarring. There is no pneumothorax. IMPRESSION: No acute cardiopulmonary process. Reviewed, Interpreted and Dictated by Tim Peters MD Transcribed by Rebecca Sharif Authenticated and [facility]
== END ==
PROVIDERS: PCP Internal Medicine Adolescent Medicine; Visit Provider Internal Medicine Adolescent Medicine
DX: R07.89 Other chest pain (principal)
CPT/HCPCS: 71046; 71100